=== PATIENT | male | born 1995 | race Caucasian/White ===

== ENCOUNTER 2017-06-25 17:36 | Emergency (ER) | payer OTHER ==
[2017-06-25] MEDS: ONDANSETRON 4MG/2ML VIAL (J2405) IV (20:30)
[2017-06-25] MEDS: NS 1,000 ML IV (20:30)
[2017-06-25 21:08] LABS: BASO # 0.1 10^3/uL (0.0-0.2); BASO % 0.5 % (0.0-1.0); HEMATOCRIT 48.2 % (42.0-52.0); HEMOGLOBIN 16.8 g/dl (14.0-18.0); IMMATURE GRANULOCYTE % 0.3 % (0-3.0); LYMPH # 0.6 10^3/uL (1.5-6.5); LYMPH % 4.9 % (24.0-44.0); MEAN CORPUSCULAR HEMOGLOBIN 31.8 pg (27.0-33.0); MEAN CORPUSCULAR HGB CONC 34.9 g/dl (32.0-36.5); MEAN CORPUSCULAR VOLUME 91.1 fl (80.0-96.0); MONO # 0.5 10^3/uL (0.0-0.8); MONO % 3.6 % (0.0-5.0); NEUTROPHILS # 11.7 10^3/uL (1.8-7.7); NEUTROPHILS % 90.7 % (36.0-66.0); PLATELET COUNT, AUTOMATED 329 10^3/uL (150-450); RED BLOOD COUNT 5.29 10^6/uL (4.30-6.10); RED CELL DISTRIBUTION WIDTH 12.2 % (11.5-14.5); WHITE BLOOD COUNT 12.9 10^3/uL (4.0-10.0)
[2017-06-25 21:19] LABS: KETONE, URINE AUTO RFX 2+ mg/dL (NEGATIVE); LEUKOCYTE ESTERASE UR AUTO RFX NEGATIVE (NEGATIVE); MUCUS, URINE RFX MODERATE (NEGATIVE); NITRITE, URINE AUTO RFX NEGATIVE (NEGATIVE); RBC, URINE AUTO RFX 2 /HPF (0-3); SPECIFIC GRAVITY UR AUTO RFX 1.027 (1.002-1.035); SQUAM EPITHELIAL CELL UR AURFX 0 /HPF (0-6); WBC, URINE AUTO RFX 2 /HPF (0-3)
[2017-06-25 21:36] LABS: ALBUMIN 4.8 GM/DL (3.2-5.2); ALBUMIN/GLOBULIN RATIO 1.17 (1.00-1.93); ALKALINE PHOSPHATASE 76 U/L (45-117); ALT/SGPT 44 U/L (12-78); ANION GAP 12 MEQ/L (8-16); AST/SGOT 27 U/L (7-37); BILIRUBIN,DIRECT 0.2 MG/DL (0.0-0.2); BILIRUBIN,TOTAL 1.3 MG/DL (0.2-1.0); BLOOD UREA NITROGEN 19 MG/DL (7-18); CALCIUM LEVEL 9.7 MG/DL (8.5-10.1); CARBON DIOXIDE LEVEL 27 MEQ/L (21-32); CHLORIDE LEVEL 104 MEQ/L (98-107); CREATININE FOR GFR 1.09 MG/DL (0.70-1.30); GLOMERULAR FILTRATION RATE > 60.0 (>60); GLUCOSE, FASTING 97 MG/DL (70-100); LIPASE 86 U/L (73-393); POTASSIUM SERUM 4.1 MEQ/L (3.5-5.1); SODIUM LEVEL 143 MEQ/L (136-145); TOTAL PROTEIN 8.9 GM/DL (6.4-8.2)
== END 2017-06-25 23:07 | disposition home or self-care (01) ==
LOC: M ED 17:36
DX: A08.4 Viral intestinal infection, unspecified (principal); E86.0 Dehydration
CPT/HCPCS: J2405

== ENCOUNTER 2020-01-06 20:52 | Day surgery (SDC) | payer OTHER ==
[~2020-01-06] VITALS: Ht 170.2 cm; Wt 95.4 kg
[~2020-01-06 20:52] MED LIST: ZOFR4TAB14 PO
[2020-01-06] MEDS ORDERED: NS 1,000 ML IV ONE (21:15)
[2020-01-06] MEDS ORDERED: KETOROLAC 30 MG/ML 1ML VIAL IV ONE (21:15)
[2020-01-06] MEDS ORDERED: ONDANSETRON 4MG/2ML VIAL IV ONE (21:15)
[2020-01-06 21:56] LABS: BASO # 0.1 10^3/uL (0.0-0.2); BASO % 0.5 % (0.0-1.0); EOS # 0.4 10^3/uL (0.0-0.5); EOS % 3.3 % (0.0-3.0); HEMATOCRIT 45.4 % (42.0-52.0); HEMOGLOBIN 16.1 g/dl (13.5-17.5); LYMPH # 1.2 10^3/uL (1.5-5.0); LYMPH % 9.1 % (24.0-44.0); MEAN CORPUSCULAR HEMOGLOBIN 32.7 pg (27.0-33.0); MEAN CORPUSCULAR HGB CONC 35.5 g/dl (32.0-36.5); MEAN CORPUSCULAR VOLUME 92.1 fl (80.0-96.0); MONO % 7.5 % (0.0-5.0); NEUTROPHILS # 10.4 10^3/uL (1.5-8.5); NEUTROPHILS % 79.4 % (36.0-66.0); PLATELET COUNT, AUTOMATED 281 10^3/uL (150-450); RED BLOOD COUNT 4.93 10^6/uL (4.30-6.10); WHITE BLOOD COUNT 13.1 10^3/uL (4.0-10.0)
[2020-01-06] MEDS ORDERED: ISOVUE-370 76% 100ML VIAL As Ordered ONE (22:06)
--- NOTE | 2020-01-06 22:46 | REPVR ---
PROCEDURE INFORMATION: Exam: CT Abdomen And Pelvis With Contrast Exam date and time: 01/06/2020 10:13 PM Age: 24 years old Clinical indication: Other: Abd pain with leukocytosis TECHNIQUE: Imaging protocol: Computed tomography of the abdomen and pelvis with intravenous contrast. Axial, coronal and sagittal reformatted images were created and reviewed. Radiation optimization: All CT scans at this facility use at least one of these dose optimization techniques: automated exposure control; mA and/or kV adjustment per patient size (includes targeted exams where dose is matched to clinical indication); or iterative reconstruction. Contrast material: ISOVUE 370; Contrast volume: 100 ml; Contrast route: INTRAVENOUS (IV); COMPARISON: CT ABD/PEL W/IV CONTRAST ONLY 06/25/2017 9:50 PM FINDINGS: Liver: Unremarkable. Gallbladder and bile ducts: No radiodense gallstones. No biliary ductal dilatation. Pancreas: Unremarkable. Spleen: Unremarkable. Adrenals: Unremarkable. Kidneys and ureters: No mass. No radiodense calculi. No hydronephrosis. Stomach and bowel: No bowel wall thickening. No obstruction. No pneumatosis. Appendix: Dilated, thickwalled, hyperemic distal appendix with subtle periappendiceal haziness and intraluminal appendicolith. Intraperitoneal space: No free fluid. No organized fluid collection. No free air. Vasculature: Unremarkable. No aneurysm. Lymph nodes: No pathologically enlarged lymph nodes. Bladder: Unremarkable. Reproductive: Unremarkable. Bones/joints: No acute osseous abnormality. Soft tissues: Unremarkable. IMPRESSION: 1. Acute appendicitis, as described above. No abscess, obstruction or free air. 2. Additional findings, as above. Electronically signed by: Zeeshan Booth On 01/06/2020 22:46:03 PM
[2020-01-06 22:57] LABS: ALBUMIN 4.5 GM/DL (3.2-5.2); BILIRUBIN,DIRECT 0.2 MG/DL (0.0-0.2); TOTAL PROTEIN 7.6 GM/DL (6.4-8.2)
[2020-01-06] MEDS ORDERED: MORPHINE 4 MG/ML 1ML VIAL/SYRINGE (J2270) IV ONE (23:00)
[2020-01-06] MEDS ORDERED: NS 1,000 ML IV SCH (23:00)
[2020-01-06] MEDS ORDERED: PIPERACILLIN/TAZOBACTAM SOD 3.375 GM in D5W MINI-BAG PLUS 50 ML IV ONE (23:00)
[2020-01-07] VITALS (7 sets, daily range): BP systolic 97–121; BP diastolic 57–74
[2020-01-07] MEDS ORDERED: LR 1,000 ML IV SCH ×2 (00:07→02:30)
[2020-01-07] MEDS ORDERED: BUPIVACAINE HCL 0.25% 30ML VIAL As Ordered ONE (00:28)
[2020-01-07] MEDS ORDERED: ONDANSETRON 4MG/2ML VIAL As Ordered ONE (00:34)
[2020-01-07] MEDS ORDERED: propofoL 200 MG/20 ML VIAL As Ordered ONE (00:34)
[2020-01-07] MEDS ORDERED: fentaNYL 100 MCG/2 ML INJECTION (J3010) As Ordered ONE ×3 (00:34→02:52)
[2020-01-07] MEDS ORDERED: dexameTHASONE 4 MG/ML 1ML VIAL (J1100 PER 1MG) As Ordered ONE (00:34)
[2020-01-07] MEDS ORDERED: LIDOCAINE 2% 100MG/5ML SDV (FOR ANES.) As Ordered ONE (00:34)
[2020-01-07] MEDS ORDERED: ROCURONIUM BROMIDE 50 MG/5 ML VIAL As Ordered ONE ×2 (00:34→01:34)
[2020-01-07] MEDS ORDERED: MIDAZOLAM INJ 2MG/2ML VIAL (J2250 PER 1MG) As Ordered ONE (00:34)
[2020-01-07] MEDS ORDERED: ACETAMINOPHEN 1000MG 100ML IV BTL (OFIRMEV) (J0131 PER 10MG) As Ordered ONE (01:12)
[2020-01-07] MEDS ORDERED: ESMOLOL INJ 100MG/10ML VIAL As Ordered ONE (01:15)
[2020-01-07] MEDS ORDERED: SUGAMMADEX SODIUM 500 MG/5 ML VIAL (BRIDION) As Ordered ONE (01:21)
[2020-01-07] MEDS ORDERED: METOCLOPRAMIDE INJ 10MG/2ML VIAL (J2765 PER 1) As Ordered ONE (01:21)
[2020-01-07] MEDS ORDERED: ONDANSETRON 4MG/2ML VIAL IV PRN (02:30)
[2020-01-07] MEDS ORDERED: NORCO, ANEXSIA 5/325MG TABLET (HYDROcodone/ACETAMINOPHEN) PO PRN (02:30)
[2020-01-07] MEDS ORDERED: oxyCODONE 5MG TAB PO PRN (02:30)
[2020-01-07] MEDS ORDERED: IBUPROFEN 600MG TAB PO PRN (02:30)
[2020-01-07] MEDS ORDERED: MEPERIDINE INJ 25 MG/ML VIAL (J2175) IV PRN (02:30)
[2020-01-07] MEDS ORDERED: fentaNYL 100 MCG/2 ML INJECTION (J3010) IV PRN (02:30)
[2020-01-07] MEDS ORDERED: ACETAMINOPHEN TAB 650MG DOSE (2X325MG) PO PRN (02:30)
[2020-01-07] MEDS ORDERED: METOCLOPRAMIDE INJ 10MG/2ML VIAL (J2765 PER 1) IV PRN (02:30)
[2020-01-07] MEDS ORDERED: MORPHINE 2 MG/ML 1ML VIAL (J2270) IV PRN (02:30)
[2020-01-07] MEDS ORDERED: PIPERACILLIN/TAZOBACTAM SOD 3.375 GM in D5W MINI-BAG PLUS 50 ML IV ONE (05:00)
--- NOTE | 2020-01-08 11:16 | IPN ---
DATE: 01/07/2020 HISTORY: The patient is now approximately 12 hours postop from a laparoscopic appendectomy for acute appendicitis. He appears to be doing quite well. PHYSICAL EXAMINATION: VITAL SIGNS: Vital signs show that he has been afebrile with a normal pulse and blood pressure. Intake and output he has been taking clear liquids and has not advanced to a regular diet. GENERAL APPEARANCE: The patient is lying quietly on the hospital bed and looks quite comfortable. He is alert and oriented. ABDOMEN: Flat with active bowel sounds and dressings are dry. IMPRESSION: The patient is doing very well, tolerating a regular diet and voiding without difficulty. He has had only one Vicodin tablet postop but believes he can get by without any narcotic pain relievers. PLAN: The patient will be discharged home today. He was advised to take Tylenol or Ibuprofen as needed. He should follow up in my office in 10-14 days. He can call for any problems. He can pursue a regular diet but was advised that he should follow a limited activity regimen with no strenuous activity or lifting greater than 25 pounds for 2 weeks. HERNAN
--- NOTE | 2020-01-24 17:07 | RO ---
DATE OF OPERATION: 01/07/2020 PREOPERATIVE DIAGNOSIS: Acute appendicitis. POSTOPERATIVE DIAGNOSIS: Acute appendicitis. PROCEDURE: Laparoscopic appendectomy. SURGEON: Elmo Noyola M.D. ANESTHESIA: General INDICATIONS FOR PROCEDURE: Patient is a 24-year-old man who presented to the emergency department with a roughly one-day history of increasing lower abdominal pain. This became more localized to the right lower quadrant and low mid abdomen. He developed nausea and vomiting. In the emergency department a CT scan showed adistended appendix with evidence of inflammation consistent with appendicitis. He is now for a laparoscopic appendectomy. OPERATIVE PROCEDURE: The patient was brought to the operating room and placed on the table in a supine position. He was placed under general endotracheal anesthesia. The patients abdomen was prepped and draped in a sterile fashion. 0.25% Marcaine was infiltrated at each of the trocar sites as needed. A short supraumbilical midline incision was made. A Veress needle was inserted and with a positive hanging drop test, insufflation was begun. However, he had high insufflation pressures and this was removed and reinserted. This again showed high insufflation pressures and the needle was withdrawn. I then moved to a left mid abdominal position and made a small incision and inserted the Veress needle. After a positive hanging drop test, the abdomen was inflated without difficulty. After the abdomen was fully inflated, I returned to the supraumbilical site and incised the fascia and inserted a 12 mm port without difficulty. The laparoscope was inserted. The patient was found to have some insufflation of the falciform ligament and some of the preperitoneal fat in the upper abdomen. A 5 mm port was placed through the incision in the left mid abdomen and a third port, also 5 mm, was placed in the left lower quadrant. Graspers were inserted. The inflamed tip of the appendix was identified extending from beneath the cecum. The patient was tilted to a slight Trendelenburg position and rolled to the left. The terminal ileum was rolled superiorly to better expose the appendix. The entire appendix was quite dilated and somewhat pale in appearance with some exudate noted. There was no sign of perforation. The appendix was elevated by the mesoappendix and the mesoappendix was divided using the hook cautery. The vascular bundle was identified and thoroughly cauterized and then divided. Dissection proceeded down to the base of the appendix. The appendix was stapled at its junction with the cecum using a 45 mm endoscope linear cutter with a blue load. The appendix was placed in an Endopouch. The right lower quadrant was irrigated and inspected, and there was no bleeding. There was a small amount of turbid fluid in the pelvis and this was irrigated and removed. The patient was returned to a flat position. The abdomen was deflated and the trocars were all removed. The appendix was recovered through the supraumbilical site. The appendix was clearly somewhat distended and quite indurated. This was sent for permanent pathology. The fascia at the supraumbilical site was closed with interrupted simple sutures of 2-0 Vicryl. The skin incisions were then all closed with buried 4-0 Vicryl and Steri-Strips. Light dressings were applied. The patient tolerated the procedure well without apparent complication. He was awakened in the operating room, extubated, and moved to the recovery room in stable condition. HERNAN
== END 2020-01-07 14:50 | disposition home or self-care (01) ==
LOC: M ED 20:52 → M SDC 20:53 → M ED 21:33 → M SDC 01-07 00:17 → M MSPAV 01-07 03:25 → M SDC 01-07 03:25 → M MSPAV 01-07 14:50 → M SDC 01-07 14:50
PROVIDERS: ATTEND Surgery
DX: K35.890 Other acute appendicitis without perforation or gangrene (principal)
CPT/HCPCS: 44970; 74177; 80047; 80076; 81001; 83690; 85025; 88302; 96361; 96365; 96366; 96375; 99283; J0131; J1100; J1885; J2250; J2270; J2405; J2543; J2765; J3010; Q9967; U0002